=== PATIENT | male | born 1955 | race Caucasian/White ===

== ENCOUNTER → 2017-10-31 | Outpatient (CLI) | payer BC ==
[~2017-10-31] MED LIST: ASPI-113 PO; LEVE1TAB57 PO; TRAM-10 PO; lisinopril/hctz PO
== END | disposition home or self-care (01) ==
LOC: C.CPL 14:44
PROVIDERS: ATTEND Orthopaedic Surgery Sports Medicine
DX: Z01.810 Encounter for preprocedural cardiovascular examination (principal)